=== PATIENT | male | born 1995 | race Two or more races ===

== ENCOUNTER 2024-02-24 00:59 | Emergency (ER) | payer SELFPAY ==
[2024-02-24 01:00] VITALS: BP 148/93; PULSE 90; RESP 20; TEMP 36.8; O2SAT 97
[2024-02-24 01:26] VITALS: BMI 28.3
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
[2024-02-24 01:51] VITALS: BP 137/104; PULSE 96; RESP 16; TEMP 36.7; O2SAT 98
[2024-02-24] MEDS: BACITRACIN OINT 1 GM PACKET TOP (02:14)
[2024-02-24] MEDS: DIPHTH,PERTUSS(ACELL),TET VAC 0.5 ML VIAL IMi (02:15)
== END 2024-02-24 02:38 | disposition left against medical advice (07) ==
PROVIDERS: Emergency Provider Emergency Medicine
DX: Z02.89 Encounter for other administrative examinations (principal); S00.412A Abrasion of left ear, initial encounter; Y04.2XXA Assault by strike against or bumped into by another person, initial encounter; Y92.149 Unspecified place in prison as the place of occurrence of the external cause; Z53.29 Procedure and treatment not carried out because of patient's decision for other reasons; Z23 Encounter for immunization
CPT/HCPCS: 90471; 90715; 99282; A9270